=== PATIENT | female | born 1960 | race Caucasian/White ===

== ENCOUNTER 2018-04-03 20:06 | Inpatient (IN) | payer BC, OTHER ==
[~2018-04-03] VITALS: Ht 149.9 cm; Wt 70.3 kg
[2018-04-03 21:03] LABS: BASOPHILS % 0.1 % (0.0-1.0); HEMOGLOBIN 13.7 g/dL (12.0-16.0); LYMPHOCYTES # (AUTO) 1.6 (1.0-3.2); LYMPHOCYTES % 7.2 % (18.0-39.1); MEAN CORPUSCULAR HEMOGLOBIN 31.6 pg (28-32); MEAN CORPUSCULAR HGB CONC 35.1 g/dL (31-35); MEAN CORPUSCULAR VOLUME 89.9 fL (81-99); MONOCYTES % 4.4 % (4.4-11.3); NEUTROPHILS # (AUTO) 19.5 (2.1-6.9); NEUTROPHILS % 87.7 % (38.7-80.0); PLATELET COUNT 337 x10e3/uL (140-360); RED BLOOD COUNT 4.34 x10e6/uL (3.6-5.1); RED CELL DISTRIBUTION WIDTH 13.1 % (11.7-14.4)
[2018-04-03 21:12] LABS: INR 1.11; PROTHROMBIN TIME 13.5 seconds (11.9-14.5)
[2018-04-03 21:13] LABS: PARTIAL THROMBOPLASTIN TIME 29.2 seconds (23.8-35.5)
[2018-04-03 21:22] LABS: ALANINE AMINOTRANSFERASE 23 IU/L (0-55); ALBUMIN 4.2 g/dL (3.5-5.0); ALBUMIN/GLOBULIN RATIO 1.4 (0.8-2.0); ALKALINE PHOSPHATASE 112 IU/L (40-150); ANION GAP 16.1 mmol/L (8-16); BLOOD UREA NITROGEN 13 mg/dL (7-26); BUN/CREATININE RATIO 11 (6-25); CALCIUM 9.8 mg/dL (8.4-10.2); CARBON DIOXIDE 23 mmol/L (22-29); CHLORIDE 99 mmol/L (98-107); CREATINE KINASE 1126 IU/L (29-168); CREATININE, SERUM 1.21 mg/dL (0.57-1.11); EST GLOMERULAR FILTRATION RATE 46 ML/MIN (60-); GLUCOSE 113 mg/dL (74-118); POTASSIUM 4.1 mmol/L (3.5-5.1); SODIUM 134 mmol/L (136-145)
[2018-04-03 21:24] LABS: ACETAMINOPHEN < 3 ug/mL (10-30); SALICYLATE < 5.0 mg/dL (0-30)
--- NOTE | 2018-04-03 21:34 | Diagnostic Imaging Report ---
Examination: CT head without contrast Clinical Indication: Confusion. Technique: Transaxial noncontrast images from the skull base through the vertex were obtained. Sagittal and coronal reformatted images were done. Comparison: None. Findings: Scalp: No abnormalities. Bones: Intact. No fractures. No blastic or lytic lesions. Brain sulci: Appropriate for patient's age. Ventricles: Normal in size and configuration. No hydrocephalus. Extra-axial space: No abnormalities. Parenchyma: No abnormal densities. No masses, hemorrhage, or acute or chronic cortical based vascular insults. Suprasellar region: No abnormalities. Craniocervical junction: The foramen magnum is patent. No Chiari one malformation. Impression: No intracranial abnormality. Signed by: Dr. Eugenia Donaldson M.D. on 04/03/2018 9:31 PM
[2018-04-03 21:41] LABS: THYROID STIMULATING HORMONE 0.423 uIU/mL (0.350-4.940)
[2018-04-03 23:15] LABS: AMPHETAMINES SCREEN,URINE NEGATIVE (NEGATIVE); BENZODIAZEPINES SCREEN,URINE POSITIVE (NEGATIVE); CLARITY,URINE HAZY (CLEAR); COLOR,URINE YELLOW (YELLOW); KETONES,URINE NEGATIVE (NEGATIVE); LEUKOCYTE ESTERASE ,URINE TRACE (NEGATIVE); NITRITE,URINE NEGATIVE (NEGATIVE); PHENCYCLIDINE SCREEN,URINE NEGATIVE (NEGATIVE); PROTEIN,URINE DIPSTICK NEGATIVE (NEGATIVE)
[2018-04-03 23:17] LABS: BILIRUBIN,URINE NEGATIVE (NEGATIVE); URINE UROBILINOGEN 0.2 mg/dL (0.2 - 1)
[2018-04-03 23:23] LABS: BACTERIA,URINE FEW /HPF; EPITHELIAL CELLS,URINE FEW /LPF; RBC,URINE 0-5 /HPF (0-5)
[2018-04-03] MEDS ORDERED: SODIUM CHLORIDE 0.9% 1000ML 1,000 ML IV STA (23:47)
[2018-04-03] MEDS ORDERED: PANTOPRAZOLE 40 MG 10ML VIAL IV STA (23:47)
[2018-04-04] VITALS (8 sets, daily range): BP systolic 137–148; BP diastolic 73–86
--- NOTE | 2018-04-04 00:31 | Diagnostic Imaging Report ---
CHEST SINGLE (PORTABLE), 04/03/2018 10:58 PM Technique: CHEST SINGLE (PORTABLE) Comparison: None available. Clinical history: Altered mental status Findings: See Impression Impression: 1. Prominent cardiomediastinal silhouette, accentuated by portable technique. 2. Right basilar opacity which may reflect atelectasis, aspiration or infection. Recommend follow-up upright PA and lateral when feasible. 3. No effusion or pneumothorax. Signed by: Dr Minerva Stewart MD on 04/04/2018 12:27 AM
[2018-04-04] MEDS ORDERED: CLINDAMYCIN PHOS 900MG/ D5W 50 50 ML IV SCH (01:30)
[2018-04-04] MEDS: CEFTRIAXONE SOD 1 GM VIAL IV SCH ×3 (01:30→23:25)
[2018-04-04] MEDS ORDERED: ONDANSETRON HCL INJ 2 MG/ML VIAL IV PRN (01:30)
[2018-04-04] MEDS ORDERED: LEXAPRO10 MG PO (05:26)
[2018-04-04] MEDS ORDERED: LORAZEPAM1 MG PO (05:26)
[2018-04-04] MEDS ORDERED: QUETIAPINE FUM400 MG PO (05:26)
[2018-04-04] MEDS ORDERED: TRAZODONE HCL50 MG PO (05:26)
[2018-04-04] MEDS ORDERED: COMBIVENT RESPIM4 GM IH (05:26)
[2018-04-04] MEDS ORDERED: GABAPENTIN400 MG PO (05:26)
[2018-04-04] MEDS ORDERED: CHANTIX1 MG PO (05:26)
[2018-04-04] MEDS ORDERED: LEVOTHYROXINE75 MCG PO (05:26)
[2018-04-04] MEDS ORDERED: NEXIUM40 MG PO (05:26)
[2018-04-04] MEDS ORDERED: ARMOUR THYROID30 MG PO (05:26)
[2018-04-04] MEDS: SODIUM CHLORIDE 0.9% 1000ML 1,000 ML IV SCH ×4 (05:35→23:25)
[2018-04-04] MEDS: AZITHROMYCIN 500MG/NS 250 ML 250 ML IV SCH ×2 (05:35→08:58)
[2018-04-04 07:11] LABS: CREATINE KINASE 722 IU/L (29-168)
[2018-04-04 07:47] LABS: BASOPHILS % 0.2 % (0.0-1.0); EOSINOPHILS # (AUTO) 0.1 (0.0-0.4); EOSINOPHILS % 0.5 % (0.0-6.0); HEMATOCRIT 32.7 % (34.2-44.1); HEMOGLOBIN 11.3 g/dL (12.0-16.0); LYMPHOCYTES # (AUTO) 2.2 (1.0-3.2); LYMPHOCYTES % 14.8 % (18.0-39.1); MEAN CORPUSCULAR HEMOGLOBIN 31.6 pg (28-32); MEAN CORPUSCULAR HGB CONC 34.6 g/dL (31-35); MEAN CORPUSCULAR VOLUME 91.3 fL (81-99); MONOCYTES # (AUTO) 0.7 (0.2-0.8); NEUTROPHILS # (AUTO) 11.6 (2.1-6.9); NEUTROPHILS % 79.1 % (38.7-80.0); PLATELET COUNT 307 x10e3/uL (140-360); RED BLOOD COUNT 3.58 x10e6/uL (3.6-5.1); RED CELL DISTRIBUTION WIDTH 13.3 % (11.7-14.4)
[2018-04-04 07:59] LABS: ALANINE AMINOTRANSFERASE 18 IU/L (0-55); ALBUMIN 3.3 g/dL (3.5-5.0); ALBUMIN/GLOBULIN RATIO 1.4 (0.8-2.0); ALKALINE PHOSPHATASE 92 IU/L (40-150); ANION GAP 13.5 mmol/L (8-16); BLOOD UREA NITROGEN 9 mg/dL (7-26); BUN/CREATININE RATIO 11 (6-25); CALCIUM 8.8 mg/dL (8.4-10.2); CARBON DIOXIDE 21 mmol/L (22-29); CHLORIDE 108 mmol/L (98-107); CREATININE, SERUM 0.82 mg/dL (0.57-1.11); EST GLOMERULAR FILTRATION RATE > 60 ML/MIN (60-); GLUCOSE 110 mg/dL (74-118); POTASSIUM 3.5 mmol/L (3.5-5.1); SODIUM 139 mmol/L (136-145)
--- NOTE | 2018-04-04 08:04 | History and Physical ---
CHIEF COMPLAINT: The patient was found to be confused, disoriented and naked on couch at home last evening by . HISTORY OF PRESENT ILLNESS: History with the help of notes of emergency room. Next of kin or not available at bedside or on the phone. The patient is a poor historian. Apparently, the patient was found confused, disoriented and laying naked on her couch at home. The patient came back from work. As per the patient's recent history, has an increased amount of falls at home. The patient was brought in to the ER. In the emergency room, the patient was seen by the emergency room doctor, Dr. Smith, and was admitted for altered mental status, pneumonia and rhabdo. At present, the patient is lying comfortably in bed. No apparent distress. No chest pain. No shortness of breath. No nausea, vomiting, diarrhea, abdominal pain, loss of consciousness, or palpitations. No headaches. No hematemesis. No melena, hematuria or dysuria. No fever. No cough. No witnessed seizures. PAST MEDICAL HISTORY 1. COPD. 2. Alcohol liver disease 3. Major depressive disorder. 4. Peptic ulcer disease. 5. Carotid stenosis s/p stent. SURGICAL HISTORY: surgery, hernia surgery. SOCIAL HISTORY: No recent alcohol. Former smoker. Use of cannabinoids plus. ALLERGIES: IODINE. PRIOR HOSPITALIZATIONS: None. REVIEW OF SYSTEMS: As per HPI. FAMILY HISTORY: Noncontributory. PHYSICAL EXAMINATION GENERAL: The patient is alert and oriented times 3. No apparent distress. Lying in bed. VITALS: Temperature is 98, pulse 90 per minute, respirations 18 per minute, blood pressure 140/70, and saturation is 93% on room air. HEENT: No cyanosis. No icterus. No pallor. Normocephalic and atraumatic. PERRLA. NECK: Soft and supple. No JVD. No thyromegaly. LUNGS: Air entry bilaterally. HEART: No rales. No gallops. ABDOMEN: Soft and nontender. Bowel sounds plus. HEATING EQUIPMENT INSTALLER: Alert, awake and oriented times 3. Moves extremities. LABS NOTED A/P METABOLIC ENCEPHALOPATHY PNEUMONIA/LEUCOCYTOSIS RHABDOMYOLYSIS ILLICIT DRUG USE ABNORMAL EKG HX OF COPD/MDD ADMIT PT TO MED TELE IV ANTIBIOTICS ROCEPHIN/ZITHROMAX IVF SERIAL LYTES NEUROLOGY/ID/PULM/CARIOLOGY EVAL REPORT NOT COMPLETED, LENGTH 3:34 Job#: [id number] WILLIAM ARMSTRONG
[2018-04-04] MEDS: PANTOPRAZOLE SOD 40 MG TABEC PO SCH (08:58)
[2018-04-04] MEDS: THYROID 60 MG TAB PO SCH (08:58)
[2018-04-04] MEDS: ESCITALOPRAM OXALATE 10 MG TAB PO SCH (08:58)
[2018-04-04] MEDS: LORAZEPAM 1 MG TAB PO SCH ×2 (08:58→17:00)
[2018-04-04] MEDS ORDERED: THYROID PORK PO SCH (09:00)
[2018-04-04] MEDS ORDERED: FAMOTIDINE 20 MG/2 ML VIAL IV SCH (09:00)
[2018-04-04] MEDS ORDERED: LEVOTHYROXINE SODIUM 75 MCG TAB PO SCH (09:00)
--- NOTE | 2018-04-04 10:49 | Diagnostic Imaging Report ---
PROCEDURE: Frontal and lateral views of the chest. COMPARISON: Portable chest radiograph 04/03/2018 INDICATIONS: PNEUMONIA FINDINGS: Lines/tubes: None. Lungs: The lungs are well inflated. Resolution of the previous right basilar airspace opacity, suggesting atelectasis. Linear opacities in the left lung base likely represent atelectasis or scarring. There is no evidence of pneumonia or pulmonary edema. Pleura: There is no pleural effusion or pneumothorax. Heart and mediastinum: The heart and the mediastinum are normal. Bones: No acute bony abnormality. IMPRESSION: No acute cardiopulmonary disease. Dictated by: Bulmaro Cosme M.D. on 04/04/2018 at 10:52 Electronically approved by: Bulmaro Cosme M.D. on 04/04/2018 at 10:52
--- NOTE | 2018-04-04 11:07 | Consultation ---
DATE OF CONSULTATION: April 04, 2018 PULMONARY CONSULTATION Patient of Dr. Sheriff. The patient was found with altered mental status by her . She has a history of drug abuse and overdoses in the past. Has been depressed. She denies that this is related to Chantix, which she is taking to help her quit smoking. She has had a cough for 4 days. She has a history of coronary disease with stent according to the record, peptic ulcer disease, liver disease related to alcohol, and depression. She drinks but she says now in moderation. History of hypothyroidism, on replacement with Synthroid and [place] Thyroid according to the record. ALLERGIES: IODINE. MEDICATIONS: Include Neurontin, Combivent, Chantix, Lexapro, Nexium, Levoxyl, Ativan, Seroquel, and trazodone. She has had , hernia repair and T and A. She drank occasionally this week. She is quitting smoking. 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 PHYSICAL EXAMINATION GENERAL: She is awake and alert. No acute distress. VITALS: Blood pressure 136/86, pulse 105, respirations 19, afebrile. HEENT: Head is normocephalic and atraumatic. Eyes: Extraocular movements intact. LUNGS: Rhonchi in right base. HEART: Regular rhythm. ABDOMEN: Nontender. EXTREMITIES: Nonedematous. IMPRESSION 1. Right lower lobe pneumonia, possible aspiration: to cover. Will defer to . 2. Depression: Will hold Chantix so she does not become . 3. Altered mental status may be related to Ativan: She denies marijuana use though may have been in an area where it was being smoked. Add bronchodilators. Cigarette smoking cessation. Follow up chest x-ray 2-view is pending. Thank you for this kind referral. Job#: [id number] WILLIAM
[2018-04-04] MEDS: ALBUTEROL/IPRATROPIUM 3 ML NEB NEB SCH ×2 (13:00→18:48)
--- NOTE | 2018-04-04 13:02 | Consultation ---
DATE OF CONSULTATION: April 04, 2018 INFECTIOUS DISEASE CONSULTATION REASON FOR CONSULTATION: Concern about infection, pneumonia. HISTORY OF PRESENT ILLNESS: This patient is a very pleasant 57-year-old white female, history of COPD, alcoholism, major depressive disorder, peptic ulcer disease, coronary artery disease, stent placement, , hernia surgery. She said her found her on the floor at the house. She did not know how long she was down there and she did not know what happened, but she was just passed out. When she woke up, there was no fever, no chills. She said she was doing good otherwise. The patient was brought to the emergency room, and she is being admitted and evaluated. She currently has no complaints. REVIEW OF SYSTEMS CONSTITUTIONAL: Significant that she is having sore throat and some diffuse abdominal discomfort. Otherwise unremarkable. HEENT: Negative. PULMONARY: Negative. CARDIAC: Negative. GENITOURINARY: Negative. SKIN: There are no other rashes. OTHER SYSTEMS: All negative at the present time. She says she is not feeling well. LABORATORY DATA: Blood cultures are negative. Her white count when she first came was 22.24, now is 14.6. Hemoglobin 13.7. Sodium 139, potassium 3.5, creatinine 0.82. Her CK was 722 with CK-MB 6.30. Liver enzymes are within normal limit. The patient had a chest x-ray which showed right opacity. MEDICATION: She is currently on thyroid, Ativan, Protonix, azithromycin, ceftriaxone. PHYSICAL EXAMINATION GENERAL: She is currently alert, oriented, does not seem to be in acute distress. VITAL SIGNS: Stable. Currently afebrile. HEENT: She does not appear icteric. NECK: Supple. CHEST: Clear bilaterally. HEART: S1 and S2. No S3 or S4, no murmur. ABDOMEN: Soft. Bowel sounds present. No tenderness. EXTREMITIES: No edema. SKIN: No rash. IMPRESSION 1. Sepsis on admission. 2. Pneumonia, aspiration. I am concerned that the patient had either alcohol intoxication when she first came or a drug overdose. It is hard to tell. She is to continue on Rocephin, azithromycin. Doing better. White count is coming down. I would suggest a urine drug screen, alcohol level. Will discuss with Dr. Sheriff. Will follow with you. Job#: [id number] EV
[2018-04-04 14:53] LABS: CREATINE KINASE 579 IU/L (29-168)
--- NOTE | 2018-04-04 20:19 | Consultation ---
DATE OF CONSULTATION: April 04, 2018 NEUROLOGY CONSULT NOTE HISTORY OF PRESENT ILLNESS: Ms. Calderón is a 57-year-old befgl-[id number] woman with past medical history significant for alcoholism and mixed depression/anxiety disorder who presented to the Emergency Center at [facility] on April 03, 2018 with confusion. At approximately 1845 on the day of admission, the patient was found by her at home, sitting on the couch, naked and incoherent. Mr. Calderón reports his 's responses to his questions were unrelated in tangential. Intermixed were very brief (lasting seconds) intervals of lucidity. Concerned the patient was experiencing a stroke, or some other catastrophic event, Ms. Calderón was brought to the Emergency Center by her for further evaluation. Ms. Calderón spent the day of admission at home with her son who was in and out of the house. Ms. Calderón has no memory of the day spent at home. She does report having a strawberry blake from a can. The patient reports this was her first alcoholic beverage in a few years. The patient is prescribed various psychotropic medications, such as: Lexapro, Seroquel, and Ativan. She takes gabapentin and trazodone as well. Ms. Calderón is uncertain as to whether or not she took any or all of these medications. It is possible she took multiple doses of one or more of these medications. As stated above, the patient has no memory of the day of admission. Ms. Calderón does not endorse the use of recreational substances (i.e marijuana, cocaine, methamphetamines, barbiturates, etc). The patient does report experiencing chest pain, shortness of breath, productive cough, abdominal pain, nausea, some vomiting, and diarrhea over the past few days. She does not report diminished oral intake. As stated above, the patient's brought her to the Emergency Center at [facility] on April 03, 2018 for further evaluation of her symptoms. Upon arrival in the Emergency Center, the patient was afebrile with a blood pressure 122/66 mmHg and a pulse of 114 beats per minute. The patient's neurological examination is documented as follows: Alert. Altered mental status. The patient is disoriented to place. Mood/affect normal. Speech normal. Cranial nerves normal (as tested). No cerebellar findings. No motor deficits. No sensory deficit. Reflexes normal. Routine laboratory data revealed the patient to be dehydrated with a creatinine of 1.21 and an estimated GFR of 46. Her creatinine kinase was elevated at 1126. The CBC with differential and platelets revealed an elevated white blood cell count of 22.24 with a left shift. Her urinalysis reveals trace leukocyte esterase with 11 to 20 white blood cells. Her urine drug test was positive for benzodiazepines and cannabinoids. A CT of the brain without contrast was performed and did not show evidence of recent large territorial ischemia or hemorrhage. Ms. Calderón was admitted to [facility] on April 03, 2018 for further evaluation and treatment of her symptoms. REVIEW OF SYSTEMS: Chest pain, shortness of breath, productive cough, abdominal pain, nausea, vomiting, diarrhea, confusion, worsened psychosocial stress. Otherwise the 12 point review of systems is negative. PAST MEDICAL HISTORY: Chronic obstructive pulmonary disease, thyroid disease, alcoholic cirrhosis, mixed depression/anxiety disorder, one prior seizure secondary to alcohol withdrawal, possible neurogenic bladder, alcoholism. PAST SURGICAL HISTORY: Liver biopsy, left inguinal hernia repair times 2, section, left carotid stent placement, tonsillectomy. PAST HOSPITALIZATIONS: Surgeries/procedures, admitted to inpatient rehabilitation for alcoholism. FAMILY HISTORY: The patient's paternal grandfather is . His medical history is unknown. The patient's paternal grandmother is from bone cancer. Ms. Calderón's maternal grandfather is . He had a history of alcoholism. The patient's maternal grandmother is . Her medical history is unknown. The patient's father is alive. He has coronary artery disease, prior strokes, and macular degeneration. The patient's mother is alive and has macular degeneration. Ms. Calderón has one sibling, a brother. He is alive and has coronary artery disease with prior myocardial infarction. The patient has 1 son who is alive and healthy. Multiple paternal uncles had alcoholism. SOCIAL HISTORY: Patient is . She is a high school graduate. 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 At present, the patient is unemployed. Patient does report tobacco use. She has smoked half a pack per day for approximately 40 years. The patient reports she recently started taking Chantix in an effort to quit smoking. The patient does report a history of alcohol abuse. As stated in history of present illness, the strawberry blake she consumed on the day of admission was the only alcoholic beverage she has had in the last few years. The patient endorses a remote history of marijuana use. HOME MEDICATIONS: Lexapro 20 mg by mouth twice daily, Nexium 40 mg by mouth daily, gabapentin 400 mg by mouth twice daily, Combivent 4 grams inhaled as needed for shortness of breath, levothyroxine 75 mcg by mouth daily, lorazepam 1 mg by mouth twice daily, Seroquel 400 mg by mouth at bedtime daily, omothyroid 30 mg by mouth daily, trazodone 100 mg by mouth at bedtime daily, Chantix 1 mg by mouth twice daily. ALLERGIES: NO KNOWN DRUG ALLERGIES. THE PATIENT DOES ENDORSE AN ALLERGY TO SHELLFISH. SHE REPORTS AN ADVERSE REACTION TO LATEX; IT CAUSES ITCHING. SHE REPORTS AN ADVERSE REACTION TO CATGUT. LASTLY, THE PATIENT ENDORSES AN IODINE ALLERGY. PHYSICAL EXAMINATION: VITAL SIGNS: Height 59 inches, weight 155 pounds, BMI 31.3 kg per meter squared. Blood pressure 137/80 mmHg, pulse 92 beats per minute. Respiratory rate 19 breaths per minute, oxygen saturation 94% on room air. GENERAL: The patient is awake and alert. Does not appear distressed. Mildly obese. HEENT: Normocephalic and atraumatic. Pupils are equal, round and reactive to light. Moist mucous membranes. NECK: Supple. No appreciable thyromegaly. No appreciable carotid bruits. CARDIOVASCULAR: S1 and S2. Regular rate and rhythm. No murmurs, rubs or gallops. RESPIRATORY: Clear to auscultation bilaterally. No wheezes, rhonchi or rales. EXTREMITIES: The skin is warm and dry. No clubbing, cyanosis or edema. The posterior tibial and dorsalis pedis pulses are 2+ and symmetric. SKIN: No rashes or lesions. NEUROLOGIC: Memory/attention: The patient is awake and alert. Oriented to person, place, time, and situation. CRANIAL NERVES: Cranial nerve I: Not tested. Cranial nerves II, III, IV, : Pupils are equal and round, react briskly to light (from 4 mm to 2 mm). Extraocular movements intact. No nystagmus. Cranial nerve V: Sensation to light touch and pinprick is intact in the bilateral V1 through V3 distributions. Strength of the temporalis and masseter muscles is within normal limits. Cranial nerve VII: The face is symmetric, as are all facial movements. Strength is within normal limits. Cranial nerve VIII: Hearing is intact to finger rub bilaterally. Cranial nerve IX and X: The soft palate elevates equally and symmetrically. Cranial nerve XI: Normal strength of the bilateral sternocleidomastoid and trapezius muscles. Cranial nerve XII: The tongue protrudes midline and moves symmetrically from side to side. STRENGTH: Bulk is normal, and strength is 5/5 in the bilateral deltoids, biceps, triceps, wrist flexors and extensors, finger flexors and extensors, intrinsic hand muscles, hip flexors, knee flexors and extensors, ankle dorsiflexion and plantar flexion, and intrinsic foot muscles. Tone is normal. DTRs: Deep tendon reflexes are 2+ and symmetric at the triceps, biceps, brachioradialis, patellas, and Achilles. Plantar responses are flexor bilaterally. SENSATION: Intact to light touch and pinprick in both arms and both legs. CEREBELLAR: Gvwajg-febk-xwrdqt and heel-trevino movements are intact without dysmetria or other impairment. GAIT: Deferred. SPEECH: Spontaneous speech is normal without appreciable dysarthria or aphasia. Repetition is intact. INVOLUNTARY MOVEMENTS: None. PRONATOR DRIFT: None. LABORATORY DATA: Sodium 139, potassium 3.5, chloride 108, carbon dioxide 21. Anion gap 13.5, BUN 9, creatinine 0.82, estimated GFR greater than 60. BUN to creatinine ratio 11. Glucose 110, calcium 8.8, total bilirubin 0.4. AST 30, ALT 18, alkaline phosphatase 92, total protein 5.7, albumin 3.3 globulin 2.4. Albumin to globulin ratio 1.4. Creatinine kinase 1126, 722, 579. CK-MB 12.70, 6.30, 5.20. Troponin I less than 0.001, less than 0.001, less than 0.001. Lactic acid 13.0. Ammonia 40, 32. TSH 0.423, 0.542. CBC with differential and platelets reveals a white blood cell count of 14.67 with 79.1% neutrophils, 14.8% lymphocytes 5.0% monocytes, 0.5% eosinophils and 0.2% basophils. Hemoglobin and hematocrit are 11.3 and 32.7, respectively. The platelet count is 307,000. PT 13.5 and INR 1.11, PTT 29.2. Urinalysis is significant for specific gravity of 1.030, trace leukocyte esterase and 11 to 20 white blood cells. Salicylate level less than 5.0. Acetaminophen level less than 3. Ethyl alcohol level less than 10.0. Urine drug screen is positive for benzodiazepines and cannabinoids. Group A streptococcus screen is negative. DIAGNOSTIC STUDIES: Electrocardiogram of 04/03/2018: Sinus tachycardia at [address] of the brain without contrast on 04/03/2018: On my review, there is no evidence of recent large territorial ischemia, hemorrhage, mass, or mass effect. Cerebral volumes are appropriate for age. Chest x-ray of 04/03/2018: Prominent cardiomediastinal silhouette, accentuated by portable technique. Right basilar opacity which may reflect atelectasis, aspiration, or infection. Recommend followup upright PA and lateral when feasible. No effusion, or pneumothorax. Chest x-ray of 04/06/2018: No acute cardiopulmonary disease. ASSESSMENT AND PLAN: Ms. Calderón is a 57-year-old rbmzk-oltv-[id number] woman with past medical history as documented, admitted to [facility] on April 03, 2018 with sepsis and encephalopathy. At present, the patient's neurological examination is nonfocal. Her laboratory data and other diagnostic studies have been reviewed and are documented above. In my opinion, the patient had a metabolic encephalopathy which is now resolved. The etiology of the metabolic encephalopathy was likely multifactorial, including: Dehydration, infection, and possible intoxication with alcohol, Ativan, or another substance. RECOMMENDATIONS: 1. Additional blood work will be ordered to complete an encephalopathy evaluation. That blood work will include: A vitamin B1 level, vitamin B12 level, an RPR. 2. Continue with intravenous fluids for dehydration and acute kidney injury. 3. Blood, urine, and throat cultures have been collected and are pending. Follow up those results. In the interim, continue with broad-spectrum antibiotic coverage. 4. Minimize the use sedative/hypnotic and pain medications as these will alter the patient's sensorium. To that end, the patient's home medications of Ativan and trazodone have been changed to p.r.n. status. Treatment with the patient's other psychotropic medications, including Lexapro, and Seroquel will be continued. 5. Defer treatment of the remaining medical comorbidities to the primary and other services. Thank you for this consultation. I will continue to follow this patient while she remains in the hospital. Time spent: 70 minutes. Job#: [id number] GH NATHANIEL
[2018-04-04] MEDS: QUETIAPINE FUMARATE 100 MG TAB PO SCH (20:35)
[2018-04-04] MEDS ORDERED: TRAZODONE HCL 50 MG TAB PO SCH (21:00)
[2018-04-04] MEDS ORDERED: QUETIAPINE FUMARATE 400 MG PO SCH (21:00)
--- NOTE | 2018-04-04 22:38 | Consultation ---
DATE OF CONSULTATION: April 04, 2018 CARDIOLOGY CONSULTATION REQUESTING PHYSICIAN: Dr. Delfin Sheriff REASON FOR CONSULTATION: Abnormal EKG. HISTORY OF PRESENT ILLNESS: This is a 57-year-old woman with history of carotid disease, status post left carotid stent, COPD, hypothyroidism, alcohol use with mixed depression/anxiety who was brought into the ER due to altered mental status. The patient was apparently found by her the day of admission acting oddly and speaking incoherently. He therefore brought her into the ER for further evaluation. The patient is unable to report any details regarding the events prior to admission, but is currently awake and alert and denies any chest pain, palpitations, edema, orthopnea or PND. She does endorse chronic shortness of breath which she attributes to her COPD that has not significantly changed. Recently, in the ER, she was found to have leukocytosis of 22 with CK elevation to 1126 and acute kidney injury with creatinine of 1.21. U-Tox was positive for benzodiazepines and cannabinoids. CT of the head did not reveal any acute intracranial abnormalities. She was admitted for further evaluation. Cardiology was consulted for evaluation of an abnormal EKG. REVIEW OF SYSTEMS: As per HPI. PAST MEDICAL HISTORY: 1. Carotid artery disease, status post left carotid stent. 2. COPD. 3. Hypothyroidism. 4. Alcoholic cirrhosis. 5. Mixed depression/anxiety. PAST SURGICAL HISTORY: 1. Hernia surgery times 2. 2. section. 3. Dental surgery. 4. Tonsillectomy. SOCIAL HISTORY: She smokes 5 cigarettes a day. Currently denies any alcohol or illicit drug use. FAMILY HISTORY: Pertinent for brother with myocardial infarction. PHYSICAL EXAMINATION: VITAL SIGNS: Temperature 98.2 degrees, pulse 92, respiratory rate 19, blood pressure 142/76, oxygen saturation 92% on room air. GENERAL: Well-developed, well-nourished woman. No acute distress. HEENT: Normocephalic, atraumatic. Pupils equal. No scleral icterus. NECK: Supple. No thyromegaly or cervical lymphadenopathy. No carotid bruits. LUNGS: Clear to auscultation bilaterally. No wheezes or crackles. CARDIOVASCULAR: Normal rate. Regular rhythm. Normal S1, S2. ABDOMEN: Soft, nontender. EXTREMITIES: No edema. NEURO: Nonfocal exam. Awake and alert. LABS: Sodium 139, potassium 3.5, chloride 108, CO2 21, BUN 9, creatinine 0.82. Troponin less than 0.001. CKD down to 722. WBC 14.6, hemoglobin 11.3, hematocrit 32.7, platelets 307,000. Chest x-ray: Without acute cardiopulmonary disease. IMPRESSION: 1. Altered mental status. Suspect metabolic encephalopathy, possibly drug related. 2. Abnormal electrocardiogram which demonstrates sinus tachycardia with short SC and T-wave abnormality. 3. Carotid artery disease, status post left carotid stent. 4. Chronic obstructive pulmonary disease. 5. Hypothyroidism. RECOMMENDATIONS: The patient has been ruled out for myocardial infarction. Elevated CK is likely rhabdomyolysis in the setting of her altered mental status earlier which is improving with IV fluids. Given her history of carotid artery disease, we will obtain a carotid Doppler. We will also obtain an echocardiogram to evaluate her abnormal EKG. As she currently denies symptoms, the patient can follow up for outpatient nuclear stress test once she has recovered from her acute illness. Antibiotics per infectious disease. Further evaluation of the patient's altered mental status per primary service. Thank you for this consult. We will continue to follow. Job#: [id number]
[2018-04-05] VITALS (9 sets, daily range): BP systolic 110–151; BP diastolic 66–99
[2018-04-05] MEDS: ALBUTEROL/IPRATROPIUM 3 ML NEB NEB SCH ×4 (02:10→19:42)
[2018-04-05] MEDS: SODIUM CHLORIDE 0.9% 1000ML 1,000 ML IV SCH ×4 (05:43→20:30)
[2018-04-05] MEDS: LEVOTHYROXINE SODIUM 75 MCG TAB PO SCH (06:02)
[2018-04-05 06:44] LABS: BASOPHILS % 0.3 % (0.0-1.0); EOSINOPHILS # (AUTO) 0.1 (0.0-0.4); EOSINOPHILS % 1.1 % (0.0-6.0); HEMATOCRIT 31.7 % (34.2-44.1); HEMOGLOBIN 10.7 g/dL (12.0-16.0); LYMPHOCYTES # (AUTO) 2.1 (1.0-3.2); LYMPHOCYTES % 17.5 % (18.0-39.1); MEAN CORPUSCULAR HEMOGLOBIN 31.4 pg (28-32); MEAN CORPUSCULAR HGB CONC 33.8 g/dL (31-35); MONOCYTES # (AUTO) 0.5 (0.2-0.8); MONOCYTES % 4.4 % (4.4-11.3); NEUTROPHILS # (AUTO) 9.1 (2.1-6.9); NEUTROPHILS % 76.2 % (38.7-80.0); PLATELET COUNT 277 x10e3/uL (140-360); RED BLOOD COUNT 3.41 x10e6/uL (3.6-5.1); RED CELL DISTRIBUTION WIDTH 13.5 % (11.7-14.4)
[2018-04-05 07:14] LABS: ALANINE AMINOTRANSFERASE 16 IU/L (0-55); ALBUMIN 2.7 g/dL (3.5-5.0); ALBUMIN/GLOBULIN RATIO 1.1 (0.8-2.0); ALKALINE PHOSPHATASE 79 IU/L (40-150); ANION GAP 10.5 mmol/L (8-16); BLOOD UREA NITROGEN 5 mg/dL (7-26); BUN/CREATININE RATIO 7 (6-25); CALCIUM 7.8 mg/dL (8.4-10.2); CARBON DIOXIDE 21 mmol/L (22-29); CHLORIDE 116 mmol/L (98-107); CHOL/HDL RATIO 3.2 (3.0-3.6); CHOLESTEROL 129 MD/DL (0-199); CREATININE, SERUM 0.72 mg/dL (0.57-1.11); EST GLOMERULAR FILTRATION RATE > 60 ML/MIN (60-); GLUCOSE 101 mg/dL (74-118); HDL CHOLESTEROL 40 MG/DL (40-60); LDL CHOLESTEROL 67 MG/DL (60-130); MAGNESIUM 1.6 MG/DL (1.3-2.1); POTASSIUM 3.5 mmol/L (3.5-5.1); SODIUM 144 mmol/L (136-145); TRIGLYCERIDES 110 MG/DL (0-149)
[2018-04-05] MEDS: THYROID 60 MG TAB PO SCH (09:08)
[2018-04-05] MEDS: AZITHROMYCIN 500MG/NS 250 ML 250 ML IV SCH (09:08)
[2018-04-05] MEDS: ESCITALOPRAM OXALATE 10 MG TAB PO SCH (09:08)
[2018-04-05] MEDS: PANTOPRAZOLE SOD 40 MG TABEC PO SCH (09:08)
[2018-04-05] MEDS: LORAZEPAM 1 MG TAB PO PRN (09:16)
[2018-04-05] MEDS: ACETAMINOPHEN 325 MG TAB PO PRN ×2 (09:16→20:30)
[2018-04-05] MEDS: CEFTRIAXONE SOD 1 GM VIAL IV SCH (12:40)
[2018-04-05 13:19] LABS: CREATINE KINASE 338 IU/L (29-168)
[2018-04-05] MEDS: ASPIRIN 81 MG ENTERIC COATED PO SCH (15:45)
--- NOTE | 2018-04-05 16:12 | Progress Note ---
DATE: April 05, 2018 CARDIOLOGY PROGRESS NOTE SUBJECTIVE: The patient was complaining of cramping left chest discomfort today. She denies shortness of breath. OBJECTIVE VITAL SIGNS: Temperature 99.3 degrees, pulse 102, respiratory rate 19, blood pressure 113/75, oxygen saturation 94% on 3 liters nasal cannula. GENERAL: Awake, alert, in no acute distress. LUNGS: Clear to auscultation bilaterally. No wheezes or crackles. CARDIOVASCULAR: Normal rate, regular rhythm. No murmur. Normal S1 and S2. ABDOMEN: Soft, nontender. EXTREMITIES: No edema. CARDIAC MEDICATIONS 1. Thyroid 30 mg p.o. daily. 2. Levothyroxine 75 mcg p.o. daily. LABS: WBC 11.88, hemoglobin 10.7, hematocrit 31.7, platelets 277. Sodium 144, potassium 3.5, chloride 116, CO2 21, BUN 5, creatinine 0.72. Troponin less than 0.001. TELEMETRY: Normal sinus rhythm. IMPRESSION 1. Altered mental status, suspect metabolic encephalopathy, possibly drug-related. 2. Abnormal electrocardiogram which demonstrated sinus tachycardia with short OK and T-wave abnormality. 3. Chest pain. 4. Carotid artery disease status post left carotid stent. 5. Chronic obstructive pulmonary disease. 6. Hypothyroidism. RECOMMENDATIONS: Given patient is now complaining of chest pain, we will trend cardiac markers again. Nuclear stress test has been ordered for further evaluation. Patient's carotid Doppler demonstrated a patent left carotid artery stent. Check lipid panel and start aspirin. Antibiotics per Infectious Disease. Further evaluation of the patient's altered mental status per primary service. Thank you for this consult. We will continue to follow. Job#: [id number] EV
[2018-04-05] MEDS: TRAZODONE HCL 50 MG TAB PO PRN (18:46)
--- NOTE | 2018-04-05 20:21 | Diagnostic Imaging Report ---
Ventilation/perfusion lung scan Clinical Information: 57 F with altered mental status and SOB Comparison: Chest radiograph 04/03/2018 Discussion: Xenon-133 gas 8.8 mCi was administered via inhalation. Dynamic images of the lungs in the posterior projection were obtained through single breath, equilibrium, and washout phases. Distribution of tracer activity is irregular throughout the lungs. There are no segmental ventilatory defects. Washout of tracer is diffusely delayed with bibasilar air trapping. Perfusion images of the lungs were obtained in multiple projections following intravenous administration of approximately 6.6 mCi of Tc-99m MAA. Distribution of tracer is irregular throughout the lungs. The contours of the lungs are well demarcated. There are no segmental perfusion defects of any size. The cardiomediastinal silhouette is unremarkable. Impression: Scan findings represent a VERY LOW probability for acute pulmonary embolic disease based on the PIOPED II criteria. Scan evidence of obstructive lung disease. Signed by: Dr. Cuca Haddad M.D. on 04/05/2018 8:18 PM
[2018-04-05] MEDS: QUETIAPINE FUMARATE 100 MG TAB PO SCH (20:30)
[2018-04-06] MEDS: CEFTRIAXONE SOD 1 GM VIAL IV SCH ×2 (01:15→12:00)
[2018-04-06] MEDS: ALBUTEROL/IPRATROPIUM 3 ML NEB NEB SCH ×4 (01:25→19:40)
[2018-04-06 04:30] VITALS: BP 117/66
[2018-04-06] MEDS: LEVOTHYROXINE SODIUM 75 MCG TAB PO SCH (04:56)
[2018-04-06] MEDS: SODIUM CHLORIDE 0.9% 1000ML 1,000 ML IV SCH (05:53)
[2018-04-06 06:28] LABS: BASOPHILS % 0.4 % (0.0-1.0); EOSINOPHILS # (AUTO) 0.3 (0.0-0.4); EOSINOPHILS % 3.1 % (0.0-6.0); HEMATOCRIT 31.4 % (34.2-44.1); HEMOGLOBIN 10.5 g/dL (12.0-16.0); LYMPHOCYTES % 18.3 % (18.0-39.1); MEAN CORPUSCULAR HEMOGLOBIN 31.8 pg (28-32); MEAN CORPUSCULAR HGB CONC 33.4 g/dL (31-35); MEAN CORPUSCULAR VOLUME 95.2 fL (81-99); MONOCYTES # (AUTO) 0.4 (0.2-0.8); MONOCYTES % 3.9 % (4.4-11.3); NEUTROPHILS # (AUTO) 8.2 (2.1-6.9); NEUTROPHILS % 73.9 % (38.7-80.0); PLATELET COUNT 275 x10e3/uL (140-360); RED CELL DISTRIBUTION WIDTH 13.6 % (11.7-14.4)
[2018-04-06 07:00] LABS: ALANINE AMINOTRANSFERASE 15 IU/L (0-55); ALBUMIN 2.6 g/dL (3.5-5.0); ALKALINE PHOSPHATASE 82 IU/L (40-150); ANION GAP 10.1 mmol/L (8-16); BLOOD UREA NITROGEN < 5 mg/dL (7-26); CALCIUM 7.8 mg/dL (8.4-10.2); CARBON DIOXIDE 23 mmol/L (22-29); CHLORIDE 110 mmol/L (98-107); CREATININE, SERUM 0.73 mg/dL (0.57-1.11); EST GLOMERULAR FILTRATION RATE > 60 ML/MIN (60-); GLUCOSE 90 mg/dL (74-118); POTASSIUM 3.1 mmol/L (3.5-5.1); SODIUM 140 mmol/L (136-145)
[2018-04-06 07:01] LABS: BUN/CREATININE RATIO 7 (6-25)
[2018-04-06 07:12] LABS: CHOL/HDL RATIO 3.2 (3.0-3.6)
[2018-04-06 07:16] LABS: CREATINE KINASE 191 IU/L (29-168)
[2018-04-06 08:00] VITALS: BP 129/77
[2018-04-06] MEDS: AZITHROMYCIN 500MG/NS 250 ML 250 ML IV SCH (08:18)
[2018-04-06] MEDS ORDERED: REGADENOSON 0.4 MG/5 ML SYR IV ONE (08:22)
[2018-04-06] MEDS: THYROID 60 MG TAB PO SCH (09:00)
--- NOTE | 2018-04-06 13:16 | Progress Note ---
DATE: April 06, 2018 CARDIOLOGY PROGRESS NOTE SUBJECTIVE: The patient continues to complain of chest pain. She is also complaining of shortness of breath today. She has not had her nuclear stress test as they have been unable to obtain IV access. OBJECTIVE VITAL SIGNS: Temperature 98.4 degrees, pulse 92, respiratory rate 18, blood pressure 129/755, oxygen saturation 99% on 3 liters nasal cannula. GENERAL: Awake, alert, in no acute distress. LUNGS: Clear to auscultation bilaterally. No wheezes or crackles. CARDIOVASCULAR: Normal rate, regular rhythm. No murmur. Normal S1 and S2. ABDOMEN: Soft, nontender. EXTREMITIES: No edema. CARDIAC MEDICATIONS 1. Aspirin 81 mg p.o. daily. 2. Thyroid 30 mg p.o. daily. 3. Levothyroxine 75 mcg p.o. daily. LABS: WBC 11.14, hemoglobin 10.5, hematocrit 31.4, platelets 275. Sodium 140, potassium 3.1, chloride 110, CO2 23, BUN less than 5, creatinine 0.72. Troponin less than 0.001. V/Q scan represents a very low probability for acute pulmonary embolic disease based on the PIOPED II criteria. Scant evidence of obstructive lung disease. TELEMETRY: Normal sinus rhythm. IMPRESSION 1. Chest pain. 2. Altered mental status, suspect metabolic encephalopathy, possibly drug-related. 3. Abnormal electrocardiogram, which demonstrated sinus tachycardia with short NM and T-wave abnormality. 4. Carotid artery disease status post left carotid stent. 5. Chronic obstructive pulmonary disease. 6. Hypothyroidism. RECOMMENDATIONS: The patient has had no evidence of myocardial infarction. Nuclear stress test was ordered for further ischemic evaluation given her risk factors. However, we have not been able to obtain IV access. They are reattempting. Nuclear stress test is pending establishment of IV access for stress as well as radionuclide administration. Continue current cardiac medications. Antibiotics per infectious disease. Check BNP. Thank you for this consult. We will continue to follow. Job#: [id number]
[2018-04-06 18:30] VITALS: BP 130/60
[2018-04-06] MEDS: ASPIRIN 81 MG ENTERIC COATED PO SCH (18:31)
[2018-04-06] MEDS: ESCITALOPRAM OXALATE 10 MG TAB PO SCH (18:31)
[2018-04-06] MEDS: PANTOPRAZOLE SOD 40 MG TABEC PO SCH (18:31)
[2018-04-06] MEDS: TRAZODONE HCL 50 MG TAB PO PRN (18:35)
[2018-04-06] MEDS: ACETAMINOPHEN 325 MG TAB PO PRN (18:35)
[2018-04-06] MEDS: LORAZEPAM 1 MG TAB PO PRN (18:35)
--- NOTE | 2018-04-06 18:44 | Cardiology Report ---
DATE OF STUDY: April 06, 2018 NUCLEAR STRESS TEST PROCEDURE: Rest/stress single isotope SPECT imaging with pharmacologic stress and gated SPECT imaging. INDICATIONS: Chest pain. PROCEDURE: Pharmacologic stress testing was performed with regadenoson per protocol. The heart rate was 99 beats per minute at rest and increased to a maximum of 109 beats per minute during the regadenoson infusion. The rest blood pressure was 129/62 and increased to 148/67 mmHg, which is a normal response. The patient did not develop any significant symptoms. The resting electrocardiogram demonstrated normal sinus rhythm. There were no ST segment changes consistent with myocardial ischemia. Next, myocardial perfusion imaging was performed at rest following the injection of 11 mCi of tetrofosmin. At peak pharmacological effect, the patient was injected with 27 mCi of tetrofosmin. Gated poststress tomographic imaging was performed. The overall quality of the study is fair. The left ventricular cavity is noted to be normal size on the rest and stress studies. SPECT images demonstrate homogeneous tracer distribution throughout the myocardium. Gated SPECT imaging reveals normal myocardial thickening and wall motion. The left ventricular ejection fraction was calculated to be greater than 70%. IMPRESSION: Myocardial perfusion imaging is normal. Overall left ventricular systolic function was normal without regional wall motion abnormalities. Job#: [id number] EV
[2018-04-06 20:00] VITALS: BP 150/72
[2018-04-06 20:19] VITALS: BP 150/72
[2018-04-06] MEDS: QUETIAPINE FUMARATE 100 MG TAB PO SCH (20:57)
[2018-04-06] MEDS ORDERED: POTASSIUM CHLORIDE 20 MEQ TAB CR PO ONE (21:00)
[2018-04-07] VITALS (7 sets, daily range): BP systolic 89–129; BP diastolic 53–66
[2018-04-07] MEDS: CEFTRIAXONE SOD 1 GM VIAL IV SCH ×2 (00:12→12:20)
[2018-04-07] MEDS: ALBUTEROL/IPRATROPIUM 3 ML NEB NEB SCH ×5 (01:05→23:56)
[2018-04-07] MEDS: ACETAMINOPHEN 325 MG TAB PO PRN ×2 (05:07→19:49)
[2018-04-07] MEDS: LEVOTHYROXINE SODIUM 75 MCG TAB PO SCH (06:01)
[2018-04-07] MEDS: THYROID 60 MG TAB PO SCH (08:28)
[2018-04-07] MEDS: ASPIRIN 81 MG ENTERIC COATED PO SCH (08:28)
[2018-04-07] MEDS: PANTOPRAZOLE SOD 40 MG TABEC PO SCH (08:28)
[2018-04-07] MEDS: ESCITALOPRAM OXALATE 10 MG TAB PO SCH (08:28)
[2018-04-07] MEDS: AZITHROMYCIN 500MG/NS 250 ML 250 ML IV SCH (08:28)
[2018-04-07] MEDS: LORAZEPAM 1 MG TAB PO PRN (13:30)
[2018-04-07 15:42] LABS: ANION GAP 12.3 mmol/L (8-16); BLOOD UREA NITROGEN 6 mg/dL (7-26); BUN/CREATININE RATIO 9 (6-25); CALCIUM 8.6 mg/dL (8.4-10.2); CARBON DIOXIDE 23 mmol/L (22-29); CHLORIDE 107 mmol/L (98-107); EST GLOMERULAR FILTRATION RATE > 60 ML/MIN (60-); GLUCOSE 129 mg/dL (74-118); POTASSIUM 3.3 mmol/L (3.5-5.1); SODIUM 139 mmol/L (136-145)
--- NOTE | 2018-04-07 15:56 | Progress Note ---
DATE: April 07, 2018 CARDIOLOGY PROGRESS NOTE SUBJECTIVE: Pleuritic type chest discomfort. Otherwise, no complaints. Underwent stress test with normal myocardial perfusion, preserved left ventricular systolic function, normal regional wall motion. On telemetry, in normal sinus rhythm. OBJECTIVE GENERAL: No acute distress, alert. NECK: No JVD. CHEST: Clear to auscultation. CARDIOVASCULAR: Regular rate and rhythm. Normal S1 and S2. No S3, no S4. No murmurs or rubs. ABDOMEN: Soft, nontender. EXTREMITIES: No edema. CARDIOVASCULAR MEDICATIONS: Aspirin 81 mg daily. LABS: Reviewed, none for today. ASSESSMENT 1. Atypical chest pain with pleuritic features. 2. Altered mental status, suspected metabolic encephalopathy, possibly drug related, now improved. 3. Abnormal electrocardiogram with sinus tachycardia, short VT and T-wave abnormality. 4. Carotid artery disease, status post left carotid stent. 5. Chronic obstructive pulmonary disease. 6. Hypothyroidism. RECOMMENDATIONS 1. Reassuring stress test. 2. Continue aspirin. 3. Antibiotics per ID. 4. BNP borderline level at 137 clinically; however, normovolemic. Job#: [id number] LEONID
--- NOTE | 2018-04-07 16:35 | Progress Note ---
DATE: April 07, 2018 Ms. Calderón continues to improve. She is still having some cough and shortness of breath. She said she had fever earlier. The patient is currently laying in bed comfortably. She is currently on Tylenol, DuoNeb, Zithromax and ceftriaxone, thyroid and . Her cultures remain negative for 72 hours. Her white count is down to 11.14, hemoglobin 10.5, hematocrit 31. Sodium still pending from today, but electrolytes yesterday was checked and they were within normal limits. PHYSICAL EXAMINATION GENERAL: Alert, oriented, does not seem to be in any acute distress. VITAL SIGNS: She is still running low fever of 100.3. HEENT: Normocephalic. Not icteric. NECK: Supple. CHEST: Clear bilaterally. HEART: S1 and S2. No S3, S4, no murmur. ABDOMEN: Soft. Bowel sounds present. No tenderness. EXTREMITIES: No edema. SKIN: No rash. IMPRESSION: The patient remains with fever and cough. Will get a CT of the chest, get lactic acid, calcitonin. Will change antibiotic to vancomycin and Zosyn. Will check CBC. Will check chem panel. Will follow. Job#: [id number]
--- NOTE | 2018-04-07 16:46 | Diagnostic Imaging Report ---
EXAM: CT Chest WITHOUT contrast INDICATION: Shortness of breath. Rule out pneumonia. COMPARISON: None. TECHNIQUE: The Chest was scanned utilizing a multidetector helical scanner without the use of IV contrast. Coronal and sagittal reformations were obtained. Reformatted axial MIP images were obtained and reviewed. IV CONTRAST: None COMPLICATIONS: None RADIATION DOSE: Total DLP: 444 mGy*cm Estimated effective dose: (DLP x 0.015 x size factor) mSv CTDIvol has been reviewed. It is below the limits set by the Radiation Protocol Committee (RPC). FINDINGS: Lines and Tubes: None. Lower Neck: The visualized thyroid gland is grossly unremarkable with no suspicious or significant nodule identified. Heart and Great Vessels: The aorta and main pulmonary artery measure 33 and 29 mm. respectively. No significant pericardial effusion. No significant vascular calcifications. Decreased attenuation cardiac blood pool. Lymph Nodes: Borderline mediastinal lymph nodes. The hilar regions are sub-optimally evaluated given lack of IV contrast. Lungs: Moderate bilateral pleural effusions. Basilar areas of consolidation incompletely evaluated given lack of IV contrast. Moderate scattered bilateral septal thickening with groundglass opacities, asymmetric to the upper lobes. Trachea and central bronchi are unremarkable. Upper abdomen: Limited. Bones and Soft Tissues: IMPRESSION: 1. Moderate effusions with moderate bilateral septal thickening and groundglass opacities consistent with moderate volume overload. 2. Areas of consolidation in the lung bases adjacent pleural effusion statistically atelectasis, but incompletely evaluated without IV contrast. Superimposed pneumonia not excluded. Signed by: Dr. Roney Andrade MD on 04/07/2018 4:42 PM
[2018-04-07] MEDS ORDERED: POTASSIUM CHLORIDE 20 MEQ TAB CR PO ONE (17:30)
[2018-04-07] MEDS: VANCOMYCIN 1GM/NS 250 ML 250 ML IV SCH (17:35)
[2018-04-07] MEDS: TRAZODONE HCL 50 MG TAB PO PRN (18:27)
[2018-04-07] MEDS: QUETIAPINE FUMARATE 100 MG TAB PO SCH (21:13)
[2018-04-07] MEDS: PIPER-TAZ 3.375 GM 50 ML IV SCH (23:58)
[2018-04-08] VITALS (7 sets, daily range): BP systolic 105–140; BP diastolic 61–88
[2018-04-08] MEDS: VANCOMYCIN 1GM/NS 250 ML 250 ML IV SCH ×2 (04:00→16:56)
[2018-04-08] MEDS: LEVOTHYROXINE SODIUM 75 MCG TAB PO SCH (06:10)
[2018-04-08] MEDS: PIPER-TAZ 3.375 GM 50 ML IV SCH ×3 (06:10→23:40)
[2018-04-08 06:53] LABS: BASOPHILS % 0.4 % (0.0-1.0); EOSINOPHILS # (AUTO) 0.4 (0.0-0.4); HEMATOCRIT 27.9 % (34.2-44.1); HEMOGLOBIN 9.6 g/dL (12.0-16.0); LYMPHOCYTES # (AUTO) 1.9 (1.0-3.2); LYMPHOCYTES % 24.5 % (18.0-39.1); MEAN CORPUSCULAR HEMOGLOBIN 31.4 pg (28-32); MEAN CORPUSCULAR HGB CONC 34.4 g/dL (31-35); MEAN CORPUSCULAR VOLUME 91.2 fL (81-99); MONOCYTES # (AUTO) 0.6 (0.2-0.8); MONOCYTES % 7.4 % (4.4-11.3); NEUTROPHILS # (AUTO) 4.9 (2.1-6.9); NEUTROPHILS % 62.2 % (38.7-80.0); PLATELET COUNT 310 x10e3/uL (140-360); RED BLOOD COUNT 3.06 x10e6/uL (3.6-5.1); RED CELL DISTRIBUTION WIDTH 13.2 % (11.7-14.4)
[2018-04-08 07:10] LABS: ANION GAP 9.9 mmol/L (8-16); BLOOD UREA NITROGEN 5 mg/dL (7-26); BUN/CREATININE RATIO 7 (6-25); CALCIUM 8.5 mg/dL (8.4-10.2); CARBON DIOXIDE 23 mmol/L (22-29); CHLORIDE 113 mmol/L (98-107); CREATININE, SERUM 0.69 mg/dL (0.57-1.11); EST GLOMERULAR FILTRATION RATE > 60 ML/MIN (60-); GLUCOSE 92 mg/dL (74-118); POTASSIUM 3.9 mmol/L (3.5-5.1); SODIUM 142 mmol/L (136-145)
[2018-04-08] MEDS: PANTOPRAZOLE SOD 40 MG TABEC PO SCH (07:40)
[2018-04-08] MEDS: THYROID 60 MG TAB PO SCH (07:40)
[2018-04-08] MEDS: ASPIRIN 81 MG ENTERIC COATED PO SCH (07:40)
[2018-04-08] MEDS: ESCITALOPRAM OXALATE 10 MG TAB PO SCH (07:40)
[2018-04-08] MEDS: ALBUTEROL/IPRATROPIUM 3 ML NEB NEB SCH ×3 (07:45→19:10)
[2018-04-08] MEDS: ACETAMINOPHEN 325 MG TAB PO PRN (08:19)
[2018-04-08] MEDS: LORAZEPAM 1 MG TAB PO PRN (13:53)
--- NOTE | 2018-04-08 14:43 | Progress Note ---
DATE: April 08, 2018 CARDIOLOGY PROGRESS NOTE SUBJECTIVE: Chest pain, pleuritic in nature, overall improving. No other complaints currently. OBJECTIVE VITAL SIGNS: Temperature 99 degrees, heart rate 85, respiratory rate 18, blood pressure 109/61, O2 sat 95% on 2 liter per minute nasal cannula. GENERAL: No acute distress. Alert. NECK: No JVD. CHEST: Clear to auscultation. CARDIOVASCULAR: Regular rate rhythm. Normal S1 and S2. No S3, no S4. No murmurs and no rubs. ABDOMEN: Soft. EXTREMITIES: No edema. CARDIOVASCULAR MEDICATIONS: Aspirin 81 mg daily. Zosyn, levothyroxine and vancomycin. STUDIES: Reviewed. White blood cells 7.8, hemoglobin 9.6, platelets 310,000, sodium 142, potassium 3.9, chloride 113, bicarbonate 23, BUN 5, creatinine 0.69, glucose 92, calcium 8.5. TELEMETRY: Sinus rhythm and sinus tachycardia noted. ASSESSMENT: 1. Atypical chest pain with pleuritic features. 2. Altered mental status suspected related to metabolic encephalopathy and possibly drug related, now improved. 3. Abnormal electrocardiogram with sinus tachycardia and short [place] and T-wave abnormality. 4. Carotid artery disease status post left carotid stent. 5. Chronic obstructive pulmonary disease. 6. Hypothyroidism. PLAN: Continue aspirin. Antibiotics per ID. Bone sanchez euvolemic appearing on exam in spite of borderline BNP. Had reassuring stress test. Job#: [id number]
[2018-04-08] MEDS: TRAZODONE HCL 50 MG TAB PO PRN (18:32)
--- NOTE | 2018-04-08 19:14 | Progress Note ---
DATE: April 08, 2018 SUBJECTIVE: Ms. De La Vega is feeling better today. I had to change her antibiotic to vancomycin and Zosyn and that helped. Yesterday, she was running fever, not feeling well. A CT chest which I did yesterday showed there is moderate effusion, bilateral septal thickening consistent with mild volume overload, distal areas of consolidation. PHYSICAL EXAMINATION: OBJECTIVE She is currently alert, oriented, does not seem to be in acute distress. VITAL SIGNS: Stable, currently afebrile. HEENT: Normocephalic. Not icteric. NECK: Supple. CHEST: Clear bilaterally. HEART: No murmur. ABDOMEN: Soft. IMPRESSION: Pneumonia finally getting better with vancomycin and Zosyn. Will get a peripherally inserted central catheter line. Anticipate that she will be discharged with home vancomycin and Zosyn. Will get ultrasound, aspiration of pleural fluid. Will follow with you. Job#: [id number]
--- NOTE | 2018-04-08 21:12 | Diagnostic Imaging Report ---
CHEST XRAY LINE PLACEMENT, 04/08/2018 8:07 PM Technique: CHEST XRAY LINE PLACEMENT Comparison: 04/03/2018 Clinical history: PICC line placement Findings: See impression Impression: 1. Lines/Tubes: Placement of left PICC at the cavoatrial junction. 2. Stable cardiomediastinal silhouette. 3. Persistent edema with small effusions and atelectasis. Signed by: Dr Minerva Stewart MD on 04/08/2018 9:08 PM
[2018-04-08] MEDS: QUETIAPINE FUMARATE 100 MG TAB PO SCH (23:40)
[2018-04-09] VITALS (7 sets, daily range): BP systolic 113–138; BP diastolic 62–74
[2018-04-09] MEDS: ALBUTEROL/IPRATROPIUM 3 ML NEB NEB SCH ×4 (00:08→19:20)
[2018-04-09] MEDS: VANCOMYCIN 1GM/NS 250 ML 250 ML IV SCH ×2 (04:37→16:04)
[2018-04-09 06:01] LABS: BASOPHILS % 0.4 % (0.0-1.0); EOSINOPHILS # (AUTO) 0.4 (0.0-0.4); EOSINOPHILS % 6.1 % (0.0-6.0); HEMOGLOBIN 9.4 g/dL (12.0-16.0); LYMPHOCYTES # (AUTO) 1.7 (1.0-3.2); LYMPHOCYTES % 24.3 % (18.0-39.1); MEAN CORPUSCULAR HEMOGLOBIN 31.5 pg (28-32); MEAN CORPUSCULAR HGB CONC 33.6 g/dL (31-35); MONOCYTES # (AUTO) 0.4 (0.2-0.8); MONOCYTES % 5.9 % (4.4-11.3); NEUTROPHILS # (AUTO) 4.4 (2.1-6.9); NEUTROPHILS % 62.7 % (38.7-80.0); PLATELET COUNT 301 x10e3/uL (140-360); RED BLOOD COUNT 2.98 x10e6/uL (3.6-5.1); RED CELL DISTRIBUTION WIDTH 13.4 % (11.7-14.4)
[2018-04-09] MEDS: PIPER-TAZ 3.375 GM 50 ML IV SCH ×3 (06:14→21:32)
[2018-04-09 06:23] LABS: ALANINE AMINOTRANSFERASE 19 IU/L (0-55); ALBUMIN 2.4 g/dL (3.5-5.0); ALBUMIN/GLOBULIN RATIO 0.8 (0.8-2.0); ALKALINE PHOSPHATASE 69 IU/L (40-150); ANION GAP 11.8 mmol/L (8-16); BLOOD UREA NITROGEN 6 mg/dL (7-26); BUN/CREATININE RATIO 9 (6-25); CALCIUM 8.5 mg/dL (8.4-10.2); CARBON DIOXIDE 23 mmol/L (22-29); CHLORIDE 110 mmol/L (98-107); CREATININE, SERUM 0.69 mg/dL (0.57-1.11); EST GLOMERULAR FILTRATION RATE > 60 ML/MIN (60-); GLUCOSE 91 mg/dL (74-118); POTASSIUM 3.8 mmol/L (3.5-5.1); SODIUM 141 mmol/L (136-145)
[2018-04-09] MEDS: LEVOTHYROXINE SODIUM 75 MCG TAB PO SCH (06:25)
[2018-04-09] MEDS: THYROID 60 MG TAB PO SCH (08:07)
[2018-04-09] MEDS: PANTOPRAZOLE SOD 40 MG TABEC PO SCH (08:07)
[2018-04-09] MEDS: ESCITALOPRAM OXALATE 10 MG TAB PO SCH (08:07)
[2018-04-09] MEDS: ASPIRIN 81 MG ENTERIC COATED PO SCH (08:07)
[2018-04-09] MEDS: LORAZEPAM 1 MG TAB PO PRN (15:15)
[2018-04-09] MEDS: ACETAMINOPHEN 325 MG TAB PO PRN (15:15)
[2018-04-09] MEDS: TRAZODONE HCL 50 MG TAB PO PRN (18:56)
--- NOTE | 2018-04-09 21:07 | Progress Note ---
DATE: April 09, 2018 CARDIOLOGY PROGRESS NOTE SUBJECTIVE: Patient denies chest pain or shortness of breath. OBJECTIVE: VITAL SIGNS: Temperature 97.7 degrees, pulse 80, respiratory rate 19, blood pressure 117/74, oxygen saturation 97%. GENERAL: Awake and alert, in no acute distress. LUNGS: Clear to auscultation bilaterally. No wheezes or crackles. CARDIOVASCULAR: Normal rate, regular rhythm. No murmur. Normal S1 and S2. ABDOMEN: Soft, nontender. EXTREMITIES: No edema. CARDIAC MEDICATIONS: 1. Aspirin 81 mg p.o. daily. 2. Thyroid 30 mg p.o. daily. 3. Levothyroxine 75 mcg p.o. daily. LABS: WBC 7, hemoglobin 9.4, hematocrit 28, platelets 301,000. Sodium 141, potassium 3.8, chloride 110, CO2 23, BUN 6, creatinine 0.69. TELEMETRY: Normal sinus rhythm. IMPRESSION: 1. Atypical chest pain. 2. Altered mental status, suspect likely secondary to metabolic encephalopathy, possibly drug related. 3. Abnormal electrocardiogram. 4. Carotid artery disease, status post left carotid stent. 5. Chronic obstructive pulmonary disease. 6. Hypothyroidism. RECOMMENDATIONS: Patient is ruled out for myocardial infarction with serial cardiac biomarkers. Nuclear stress test was without evidence of ischemia. Continue current cardiac medications. Antibiotics per infectious disease. Thank you for this consult. We will continue to follow. Job#: [id number]
[2018-04-09] MEDS: QUETIAPINE FUMARATE 100 MG TAB PO SCH (21:32)
[2018-04-10 00:35] VITALS: BP 140/81
[2018-04-10] MEDS: VANCOMYCIN 1GM/NS 250 ML 250 ML IV SCH (04:36)
[2018-04-10 05:03] VITALS: BP 132/80
[2018-04-10 05:50] VITALS: BP 132/80
[2018-04-10] MEDS: LEVOTHYROXINE SODIUM 75 MCG TAB PO SCH (05:51)
[2018-04-10] MEDS: PIPER-TAZ 3.375 GM 50 ML IV SCH (06:20)
[2018-04-10] MEDS: ALBUTEROL/IPRATROPIUM 3 ML NEB NEB SCH (07:20)
[2018-04-10 07:51] VITALS: BP 138/81
[2018-04-10] MEDS: ESCITALOPRAM OXALATE 10 MG TAB PO SCH (09:27)
[2018-04-10] MEDS: PANTOPRAZOLE SOD 40 MG TABEC PO SCH (09:27)
[2018-04-10] MEDS: THYROID 60 MG TAB PO SCH (09:27)
[2018-04-10] MEDS: ASPIRIN 81 MG ENTERIC COATED PO SCH (09:27)
[2018-04-10 11:06] VITALS: BP 138/81
--- NOTE | 2018-04-10 11:26 | Progress Note ---
DATE: April 10, 2018 CARDIOLOGY PROGRESS NOTE SUBJECTIVE: Patient denies chest pain. She is complaining of shortness of breath. OBJECTIVE VITAL SIGNS: Temperature 98.3 degrees, pulse 92, respiratory rate 18, blood pressure 138/81, oxygen saturation 94%. GENERAL: Awake and alert, in no acute distress. LUNGS: Clear to auscultation bilaterally. No wheezes or crackles. CARDIOVASCULAR: Normal rate, regular rhythm. No murmur. Normal S1 and S2. ABDOMEN: Soft, nontender. EXTREMITIES: No edema. CARDIAC MEDICATIONS 1. Aspirin 81 mg p.o. daily. 2. Thyroid 30 mg p.o. daily. 3. Levothyroxine 75 mcg p.o. daily. LABS: None today. TELEMETRY: Normal sinus rhythm. IMPRESSION 1. Atypical chest pain. 2. Altered mental status, suspect likely secondary to metabolic encephalopathy, possibly drug related. 3. Abnormal electrocardiogram. 4. Carotid artery disease, status post left carotid stent. 5. Chronic obstructive pulmonary disease. 6. Hypothyroidism. RECOMMENDATIONS: Patient has ruled out for myocardial infarction with serial cardiac biomarkers. Nuclear stress test was without evidence of ischemia. Continue current cardiac medications. Antibiotics per infectious disease. Thank you for this consult. We will continue to follow. Job#: [id number]
== END 2018-04-10 11:55 | disposition home or self-care (01) | DRG 871 ==
LOC: ER 20:06 → ERHOLD 04-04 02:38 → OBSVTOIN 04-04 02:38 → INTOOBSV 04-04 02:38 → MED/SURG2 04-04 03:07
PROVIDERS: ADMIT Internal Medicine; ATTEND Internal Medicine
PROC: 02HV33Z Insertion of Infusion Device into Superior Vena Cava, Percutaneous Approach (ICD-10-PCS; principal; 2018-04-08)
DX: A41.9 Sepsis, unspecified organism (principal); J69.0 Pneumonitis due to inhalation of food and vomit; G93.41 Metabolic encephalopathy; J96.01 Acute respiratory failure with hypoxia; N17.9 Acute kidney failure, unspecified; M62.82 Rhabdomyolysis; J44.9 Chronic obstructive pulmonary disease, unspecified; E03.9 Hypothyroidism, unspecified; F41.8 Other specified anxiety disorders; K70.30 Alcoholic cirrhosis of liver without ascites; F10.20 Alcohol dependence, uncomplicated; E86.0 Dehydration; F17.210 Nicotine dependence, cigarettes, uncomplicated; N31.9 Neuromuscular dysfunction of bladder, unspecified; I25.10 Atherosclerotic heart disease of native coronary artery without angina pectoris; Z95.5 Presence of coronary angioplasty implant and graft; Z87.11 Personal history of peptic ulcer disease; R53.81 Other malaise; R07.89 Other chest pain; Z91.040 Latex allergy status; Z91.013 Allergy to seafood
CPT/HCPCS: 36415; 36569; 70450; 71045; 71046; 71250; 78452; 78582; 80048; 80053; 80061; 80202; 80307; 80320; 80329; 81001; 82140; 82550; 82553; 82607; 83518; 83605; 83735; 83880; 84425; 84443; 84484; 85025; 85379; 85610; 85730; 86592; 87040; 87070; 87086; 93005; 93017; 93306; 93880; 94640; 96367; 96376; 99284; A9502; A9540; A9558; J0456; J0696; J2543; J3370; J7030

== ENCOUNTER → 2018-05-10 | Outpatient (CLI) | payer BC ==
[~2018-05-10] MED LIST: ARMOUR THYROID30 MG PO; CHANTIX1 MG PO; COMBIVENT RESPIM4 GM IH; GABAPENTIN400 MG PO; LEVOTHYROXINE75 MCG PO; LEXAPRO10 MG PO; LORAZEPAM1 MG PO; NEXIUM40 MG PO; QUETIAPINE FUM400 MG PO; TRAZODONE HCL50 MG PO
--- NOTE | 2018-05-10 14:40 | Diagnostic Imaging Report ---
PROCEDURE: Frontal and lateral views of the chest. COMPARISON: Patients [facility], CT, CT CHEST WO, 04/07/2018, 16:23. INDICATIONS: PNEUMONIA FINDINGS: Lines/tubes: None. Lungs: The lungs are well inflated and clear. There is no evidence of pneumonia or pulmonary edema. Pleura: There is no pleural effusion or pneumothorax. Heart and mediastinum: The heart and the mediastinum are normal. Bones: No acute bony abnormality. IMPRESSION: 1. No acute cardiopulmonary abnormalities. Gonsalo Anna M.D. Dictated by: Gonsalo Anna M.D. on 05/10/2018 at 14:45 Electronically approved by: Gonsalo Anna M.D. on 05/10/2018 at 14:45
== END ==
LOC: RAD 13:13
PROVIDERS: ATTEND Internal Medicine Infectious Disease
DX: J18.9 Pneumonia, unspecified organism (principal)
CPT/HCPCS: 71046

== ENCOUNTER 2022-11-07 14:49 | Outpatient (RCR) | payer BC | END 2022-11-15 | LOC: PT 14:49 | PROVIDERS: ATTEND Specialist | DX: S92.331A Displaced fracture of third metatarsal bone, right foot, initial encounter for closed fracture (principal) ==